=== PATIENT | female | born 1990 | race Caucasian/White ===

== ENCOUNTER → 2017-06-27 | Outpatient (REF) | payer OTHER ==
[~2017-06-27] MED LIST: AMOX500T PO; VICO5TAB PO; [UNRECOGNIZED DRUG - CODE] INJ
== END ==
LOC: M LAB REF 14:47
PROVIDERS: ATTEND Physician Assistant
DX: L03.012 Cellulitis of left finger (principal)

== ENCOUNTER → 2018-01-05 | Outpatient (CLI) | payer OTHER | LOC: M RAD 16:24 | DX: R10.31 Right lower quadrant pain (principal); N83.201 Unspecified ovarian cyst, right side | CPT/HCPCS: 76856 ==

== ENCOUNTER → 2018-11-13 | Outpatient (CLI) | payer OTHER ==
[2018-11-13 18:47] LABS: ALBUMIN 4.1 GM/DL (3.2-5.2); ALT/SGPT 24 U/L (12-78); BILIRUBIN,TOTAL 0.4 MG/DL (0.2-1.0); BLOOD UREA NITROGEN 8 MG/DL (7-18); CALCIUM LEVEL 8.7 MG/DL (8.5-10.1); CARBON DIOXIDE LEVEL 28 MEQ/L (21-32); CHLORIDE LEVEL 106 MEQ/L (98-107); CHOLESTEROL LEVEL 228 MG/DL (<200); CHOLESTEROL RISK RATIO 3.737 (<5); CREATININE FOR GFR 0.68 MG/DL (0.55-1.30); FREE T4 0.74 NG/DL (0.76-1.46); GLOMERULAR FILTRATION RATE > 60.0 (>60); GLUCOSE, FASTING 93 MG/DL (70-100); HDL CHOLESTEROL 61 MG/DL (>40); LDL CHOLESTEROL 130 MG/DL (<100); NON-HDL-C 167 MG/DL; SODIUM LEVEL 140 MEQ/L (136-145); THYROID STIMULATING HORMONE 0.776 uIU/ML (0.358-3.740); TOTAL PROTEIN 6.7 GM/DL (6.4-8.2); TRIGLYCERIDES LEVEL 187 MG/DL (<150)
[2018-11-13 18:48] LABS: TOTAL 25(OH) VITAMIN D 8.2 NG/ML (30.0-100.0)
== END ==
LOC: M WUC 12:39
PROVIDERS: ATTEND Nurse Practitioner Family
DX: Z13.220 Encounter for screening for lipoid disorders (principal); J30.9 Allergic rhinitis, unspecified; E66.9 Obesity, unspecified

== ENCOUNTER 2019-01-12 11:13 | Emergency (ER) | payer OTHER ==
[~2019-01-12] VITALS: Ht 149.9 cm; Wt 50.0 kg
[2019-01-12] MEDS ORDERED: LORA-622 PO (13:06)
[2019-01-12] MEDS ORDERED: RANI15TA PO (13:06)
[2019-01-12] MEDS ORDERED: D3-5CAP PO (13:06)
[2019-01-12 13:44] LABS: BASO % 0.4 % (0.0-1.0); EOS # 0.1 10^3/uL (0.0-0.50); HEMATOCRIT 40.6 % (36.0-47.0); HEMOGLOBIN 13.9 g/dl (12.0-15.5); LYMPH # 1.1 10^3/uL (1.5-4.5); LYMPH % 20.1 % (24.0-44.0); MEAN CORPUSCULAR HEMOGLOBIN 32.6 pg (27.0-33.0); MEAN CORPUSCULAR HGB CONC 34.2 g/dl (32.0-36.5); MEAN CORPUSCULAR VOLUME 95.3 fl (80.0-96.0); MONO # 0.4 10^3/uL (0.0-0.8); MONO % 7.9 % (0.0-5.0); NEUTROPHILS # 3.9 10^3/uL (1.8-7.7); NEUTROPHILS % 69.4 % (36.0-66.0); PLATELET COUNT, AUTOMATED 239 10^3/uL (150-450); RED BLOOD COUNT 4.26 10^6/uL (4.00-5.40); WHITE BLOOD COUNT 5.6 10^3/uL (4.0-10.0)
[2019-01-12 13:46] VITALS: BP 110/65
--- NOTE | 2019-01-12 13:50 | REP ---
Clinical: Chest pain. Comparison: None . Technique: PA and lateral. Findings: The mediastinum and cardiac silhouette are normal. The lung mireles are clear and without acute consolidation, effusion, or pneumothorax. The skeletal structures are intact and normal. Impression: 1. No acute cardiopulmonary process. Electronically Signed by Lino Astorga MD 01/12/2019 01:41 P
--- NOTE | 2019-01-12 14:10 | REP ---
Clinical: thoracic back pain Technique: AP, lateral, and swimmers views. Findings: Alignment and kyphosis is maintained. Vertebral bodies intact. No acute fracture / compression injury or subluxation. No degenerative changes. Paravertebral soft tissues are normal. Impression: Normal thoracic spine series. Electronically Signed by Lino Astorga MD 01/12/2019 02:02 P
[2019-01-12 14:13] LABS: BLOOD UREA NITROGEN 9 MG/DL (7-18); CALCIUM LEVEL 8.7 MG/DL (8.5-10.1); CARBON DIOXIDE LEVEL 25 MEQ/L (21-32); CHLORIDE LEVEL 109 MEQ/L (98-107); CREATININE FOR GFR 0.64 MG/DL (0.55-1.30); GLOMERULAR FILTRATION RATE > 60.0 (>60); GLUCOSE, FASTING 92 MG/DL (70-100); POTASSIUM SERUM 4.1 MEQ/L (3.5-5.1); SODIUM LEVEL 141 MEQ/L (136-145)
--- NOTE | 2019-01-13 09:36 | ECGEPIP ---
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
[2019-01-14 00:07] LABS: Lyme Disease IgG/IgM Antibodie <0.91 ISR (0.00-0.90); Lyme Disease IgM Ab Quantitati <0.80 index (0.00-0.79)
== END 2019-01-12 14:55 | disposition home or self-care (01) ==
LOC: M ED 11:13
DX: S29.012A Strain of muscle and tendon of back wall of thorax, initial encounter (principal); X50.0XXA Overexertion from strenuous movement or load, initial encounter; Y92.89 Other specified places as the place of occurrence of the external cause; R07.9 Chest pain, unspecified; R00.1 Bradycardia, unspecified; R53.83 Other fatigue; W57.XXXA Bitten or stung by nonvenomous insect and other nonvenomous arthropods, initial encounter; Z79.899 Other long term (current) drug therapy

== ENCOUNTER → 2020-02-25 | Outpatient (CLI) | payer OTHER ==
[~2020-02-25] MED LIST changes: +D3-5CAP PO; +LORA-622 PO; +RANI15TA PO
[2020-04-08 08:20] LABS: FREE T4 0.81 NG/DL (0.76-1.46); LUTEINIZING HORMONE 11.3 mIU/mL; THYROID STIMULATING HORMONE 0.918 uIU/ML (0.358-3.740)
== END ==
LOC: M LAB 10:35
PROVIDERS: ATTEND Obstetrics & Gynecology
DX: F41.9 Anxiety disorder, unspecified (principal)

== ENCOUNTER → 2020-09-11 | Outpatient (REF) | payer OTHER ==
[2020-09-11 11:42] LABS: ALBUMIN 4.4 GM/DL (3.2-5.2); ALT/SGPT 23 U/L (12-78); BILIRUBIN,TOTAL 0.5 MG/DL (0.2-1.0); BLOOD UREA NITROGEN 12 MG/DL (7-18); CALCIUM LEVEL 9.2 MG/DL (8.5-10.1); CARBON DIOXIDE LEVEL 31 MEQ/L (21-32); CHLORIDE LEVEL 107 MEQ/L (98-107); CHOLESTEROL LEVEL 216 MG/DL (<200); CHOLESTEROL RISK RATIO 3.272 (<5); CREATININE FOR GFR 0.81 MG/DL (0.55-1.30); FREE T4 0.86 NG/DL (0.76-1.46); GLOMERULAR FILTRATION RATE > 60.0 (>60); GLUCOSE, FASTING 84 MG/DL (70-100); HDL CHOLESTEROL 66 MG/DL (>40); LDL CHOLESTEROL 137 MG/DL (<100); NON-HDL-C 150 MG/DL; POTASSIUM SERUM 4.3 MEQ/L (3.5-5.1); SODIUM LEVEL 141 MEQ/L (136-145); THYROID STIMULATING HORMONE 0.775 uIU/ML (0.358-3.740); TOTAL 25(OH) VITAMIN D 27.1 NG/ML (30.0-100.0); TOTAL PROTEIN 7.7 GM/DL (6.4-8.2); TRIGLYCERIDES LEVEL 64 MG/DL (<150)
== END ==
LOC: M SFHCPLAZ 08:56
PROVIDERS: ATTEND Nurse Practitioner Family
DX: E55.9 Vitamin D deficiency, unspecified (principal); K59.09 Other constipation

== ENCOUNTER 2021-08-28 20:15 | Emergency (ER) | payer OTHER, SELFPAY ==
[~2021-08-28] VITALS: Ht 149.9 cm; Wt 50.0 kg
[2021-08-28] MEDS ORDERED: BACT800T5 PO (20:31)
[2021-08-28] MEDS ORDERED: CEPH500C (20:31)
[2021-08-28 23:23] VITALS: BP 122/62
[2021-08-29 01:03] LABS: BASO % 0.4 % (0.0-1.0); EOS # 0.4 10^3/uL (0.0-0.5); EOS % 5.4 % (0.0-3.0); HEMATOCRIT 39.3 % (36.0-47.0); HEMOGLOBIN 13.4 g/dl (12.0-15.5); LYMPH # 2.2 10^3/uL (1.5-5.0); LYMPH % 29.7 % (24.0-44.0); MEAN CORPUSCULAR HEMOGLOBIN 31.5 pg (27.0-33.0); MEAN CORPUSCULAR HGB CONC 34.1 g/dl (32.0-36.5); MEAN CORPUSCULAR VOLUME 92.3 fl (80.0-96.0); MONO # 0.9 10^3/uL (0.0-0.8); MONO % 11.6 % (2.0-8.0); NEUTROPHILS # 3.9 10^3/uL (1.5-8.5); NEUTROPHILS % 52.6 % (36.0-66.0); PLATELET COUNT, AUTOMATED 269 10^3/uL (150-450); RED BLOOD COUNT 4.26 10^6/uL (4.00-5.40); WHITE BLOOD COUNT 7.4 10^3/uL (4.0-10.0)
[2021-08-29] MEDS ORDERED: BACT800T5 PO (01:33)
[2021-08-29] MEDS ORDERED: diphenhydrAMINE 50MG CAP PO ONE (01:35)
[2021-08-29 02:16] LABS: ERYTHROCYTE SEDIMENTATION RATE 5 mm/hr (0-20)
== END 2021-08-29 01:45 | disposition home or self-care (01) ==
LOC: M ED 20:15
DX: L03.012 Cellulitis of left finger (principal); Y92.090 Kitchen in other non-institutional residence as the place of occurrence of the external cause; Y93.9 Activity, unspecified; Y99.9 Unspecified external cause status

== ENCOUNTER → 2022-10-18 | Outpatient (REF) | payer OTHER, BC ==
[~2022-10-18] MED LIST changes: +BACT800T5 PO; +CEPH500C
== END ==
LOC: M SFHCWAGY 13:19
PROVIDERS: ATTEND Nurse Practitioner Family
DX: Z12.4 Encounter for screening for malignant neoplasm of cervix (principal)

== ENCOUNTER 2023-05-06 21:58 | Emergency (ER) | payer BC, OTHER ==
[~2023-05-06] VITALS: Ht 149.9 cm; Wt 51.9 kg
[2023-05-06] MEDS ORDERED: diphenhydrAMINE 50MG/ML VIAL IV STA (22:22)
[2023-05-06] MEDS ORDERED: NS 1,000 ML IV ONE (22:25)
[2023-05-06] MEDS ORDERED: dexAMETHasone 20MG/5ML VIAL IV ONE (22:25)
[2023-05-06] MEDS ORDERED: FAMOTIDINE 20MG/2ML VIAL IVP ONE (22:25)
[2023-05-06 23:42] VITALS: BP 122/68; TEMP 98.7; O2SAT 98
[2023-05-06] MEDS ORDERED: PRED20TA PO (23:58)
== END 2023-05-07 00:04 | disposition home or self-care (01) ==
LOC: M ED 21:58
DX: L50.9 Urticaria, unspecified (principal); Z79.52 Long term (current) use of systemic steroids; Z79.899 Other long term (current) drug therapy
CPT/HCPCS: 96361; 96374; 96375; 99283; J1100; J1200; S0028

== ENCOUNTER 2025-02-25 11:51 | Day surgery (SDC) | payer BC ==
[~2025-02-25] VITALS: Ht 149.9 cm; Wt 51.3 kg
[~2025-02-25 11:51] MED LIST changes: +D3 H2000 PO; +LORA-1164 PO; -LORA-622 PO; +PRED20TA PO; +THERTAB52 PO
[2025-02-25 14:25] VITALS: TEMP 97.8
[2025-02-25] MEDS ORDERED: LIDOCAINE 1% MDV 20 ML VIAL As Ordered ONE (14:32)
[2025-02-25 14:43] VITALS: BP 107/55; O2SAT 100
== END 2025-02-25 14:50 | disposition home or self-care (01) ==
LOC: M OPP 11:51
PROVIDERS: ATTEND Internal Medicine Gastroenterology
DX: K63.5 Polyp of colon (principal); K64.8 Other hemorrhoids; K59.04 Chronic idiopathic constipation; K44.9 Diaphragmatic hernia without obstruction or gangrene; R12 Heartburn; Z79.899 Other long term (current) drug therapy